=== PATIENT | female | born 1980 | race Caucasian/White ===

== ENCOUNTER 2018-06-07 13:12 | Emergency (ER) | payer OTHER ==
[2018-06-07] MEDS ORDERED: METOCLOPRAMIDE 10 MG/2 ML VIAL IVP ONE (13:26)
[2018-06-07] MEDS ORDERED: NS 1,000 ML IV ONE (13:26)
--- NOTE | 2018-06-07 13:35 | EDPHY ---
H & P Stated Complaint: Nausea and vomiting x 4 weeks worsening x 3 days. 8 wks Time Seen by Provider: 06/07/18 13:25 HPI/ROS: CHIEF COMPLAINT: Vomiting, dehydration HISTORY OF PRESENT ILLNESS: The patient is a 38-year-old girl 8 weeks gestational age female who comes to the emergency department complaining of nausea and vomiting for the last 3 weeks but worsening over the last 3 days. She has a 1st OBGYN appointment next week. She called them and they recommended she come to the ER for hydration and medication. She has not had a fever. No sick contacts. She has been trying to hydrate and has been able to do so until recently. Today she vomits every time she tries to drink. She has not noticed any change in her urine. Severity: Moderate Modifying factors: None REVIEW OF SYSTEMS: Constitutional: denies: chills, fever, recent illness, recent injury EENTM: denies: blurred vision, double vision, nose congestion Respiratory: denies: cough, shortness of breath Cardiac: denies: chest pain, irregular heart rate, lightheadedness, palpitations Gastrointestinal/Abdominal: denies: abdominal pain, diarrhea, nausea, vomiting, blood streaked stools Genitourinary: denies: dysuria, frequency, hematuria, pain Musculoskeletal: denies: joint pain, muscle pain Skin: denies: lesions, rash, jaundice, bruising Neurological: denies: headache, numbness, paresthesia, tingling, dizziness, weakness Hematologic/Lymphatic: denies: blood clots, easy bleeding, easy bruising Immunologic/allergic: denies: HIV/AIDS, transplant 10 systems reviewed and negative except as noted EXAM: GENERAL: Well-appearing, well-nourished and in no acute distress. HEAD: Atraumatic, normocephalic. EYES: Pupils equal round and reactive to light, extraocular movements intact, sclera anicteric, conjunctiva are normal. ENT: TMs normal, nares patent, oropharynx clear without exudates. Moist mucous membranes. NECK: Normal range of motion, supple without lymphadenopathy or JVD. LUNGS: Breath sounds clear to auscultation bilaterally and equal. No wheezes rales or rhonchi. HEART: Regular rate and rhythm without murmurs, rubs or gallops. ABDOMEN: Soft, nontender, normoactive bowel sounds. No guarding, no rebound. No masses appreciated. BACK: No CVA tenderness, no spinal tenderness, step-offs or deformities EXTREMITIES: Normal range of motion, no pitting or edema. No clubbing or cyanosis. NEUROLOGICAL: Cranial nerves II through XII grossly intact. Normal speech, normal gait. 5/5 strength, normal movement in all extremities, normal sensation , normal reflexes PSYCH: Normal mood, normal affect. SKIN: Warm, dry, normal turgor, no visible rashes or lesions. Source: Patient Exam Limitations: No limitations - Personal History LMP (Females 10-55): EDC: 04/16/18 Current Tetanus Diphtheria and Acellular Pertussis (TDAP): Yes Tetanus Vaccine Date: within 10 years - Medical/Surgical History Hx Asthma: No Hx Chronic Respiratory Disease: No Hx Diabetes: No Hx Cardiac Disease: No Hx Renal Disease: No Hx Cirrhosis: No Hx Alcoholism: No Hx HIV/AIDS: No Hx Splenectomy or Spleen Trauma: No Other PMH: Tonsillectomy, hypothyroidism- no medication - Family History Significant Family History: No pertinent family hx - Social History Smoking Status: Former smoker Alcohol Use: Sober Drug Use: None Constitutional: Initial Vital Signs Temperature (C) 37 C 06/07/18 13:18 Heart Rate 62 06/07/18 13:18 Respiratory Rate 16 06/07/18 13:18 Blood Pressure 138/84 H 06/07/18 13:18 O2 Sat (%) 94 06/07/18 13:18 O2 Delivery Mode Room Air Allergies/Adverse Reactions: No Known Allergies Allergy (Verified 06/07/18 13:21) Home Medications: Medication Instructions Recorded Doxylamine Succinate/Vit B6 2 each PO DAILY #20 tablet. 06/07/18 [Beau Wilburn 10-10 mg Tablet] 06/07/18 Medical Decision Making ED Course/Re-evaluation: 2:55 p.m. the patient states she is feeling completely better. She is tolerating p. O.. She is walking to the bathroom. She is urinating. Offered a 2nd L fluid but she declines. She would like to go home. Will prescribe Diclegis. Differential Diagnosis: Partial list of the Differential diagnosis considered include but were not limited to; hyperemesis gravidarum, gastroenteritis, dehydration and although unlikely based on the history and physical exam, I also considered threatened AB , urinary tract infection. I discussed these differential diagnoses and the plan with the patient as well as the usual and expected course. The patient understands that the diagnosis is provisional and that in medicine we are not always correct and that further workup is often warranted. Usual and customary warnings were given. All of the patient's questions were answered. The patient was instructed to return to the emergency department should the symptoms at all worsen or return, otherwise to followup with the physician as we discussed. - Data Points Medications Given: Discontinued Medications Sodium Chloride (Ns) 1,000 mls @ 0 mls/hr IV EDNOW ONE; Wide Open PRN Reason: Protocol Stop: 06/07/18 13:27 Last Admin: 06/07/18 13:44 Dose: 1,000 mls Metoclopramide HCl (Reglan Injection) 10 mg IVP EDNOW ONE Stop: 06/07/18 13:27 Last Admin: 06/07/18 13:47 Dose: 10 mg Departure - Departure Disposition: Home, Routine, Self-Care Clinical Impression: Hyperemesis gravidarum Condition: Fair Instructions: Hyperemesis Gravidarum (ED) Referrals: Antonieta Martinez MD [Primary Care Provider] - As per Instructions [facility] [Outside] - As per Instructions Prescriptions: Doxylamine Succinate/Vit B6 [Beau Wilburn 10-10 mg Tablet] 2 each PO DAILY #20 tablet.
[2018-06-07 15:32] VITALS: BP 116/75
== END 2018-06-07 15:10 | disposition home or self-care (01) ==
LOC: CED 13:12
DX: O21.0 Mild hyperemesis gravidarum (principal); O99.281 Endocrine, nutritional and metabolic diseases complicating pregnancy, first trimester; E86.9 Volume depletion, unspecified; Z3A.08 8 weeks gestation of pregnancy; Z87.891 Personal history of nicotine dependence
CPT/HCPCS: 96374; J2765

== ENCOUNTER → 2018-11-02 | Outpatient (CLI) | payer OTHER | LOC: FIMAGING 07:19 | PROVIDERS: ATTEND Obstetrics & Gynecology | DX: O09.523 Supervision of elderly multigravida, third trimester (principal); Z3A.28 28 weeks gestation of pregnancy ==